=== PATIENT | male | born 1935 | race Caucasian/White ===

== ENCOUNTER 2019-12-07 12:51 | Inpatient (IN) | payer MEDICARE, MEDICAID ==
[2019-12-07] MEDS ORDERED: Acetaminophen 325 MG TAB PO PRN (13:59)
[2019-12-07] MEDS ORDERED: Ondansetron ODT 4 MG TAB PO PRN (13:59)
[2019-12-07] MEDS ORDERED: Ondansetron PF 4 MG/2 ML Vial IVP PRN (13:59)
[2019-12-07] MEDS ORDERED: Calcium Carbonate 500 MG ChewTAB PO PRN (13:59)
[2019-12-07] MEDS ORDERED: Nitroglycerin 0.4 MG TAB (25 Tab Bottle) PO PRN (14:06)
[2019-12-07] MEDS ORDERED: Sodium Bicarbonate 150 MEQ in Dextrose 5% in Water 1,000 ML IV SCH (14:15)
[2019-12-07] MEDS ORDERED: Nitroglycerin 2% Ointment 1 INCH/1 GM Packet TOP SCH ×2 (14:15→22:00)
[2019-12-07] MEDS ORDERED: Hydrocortisone Sod Succ/PF 100 mg/2 ml Vial ONE (14:24)
[2019-12-07 14:39] LABS: CKMB 59.4 ng/mL (0-6.6)
[2019-12-07 15:01] LABS: Lactic Acid 2.5 mmol/L (0.5-2.2)
--- NOTE | 2019-12-07 15:12 | PDOC.HHP ---
Hospitalist HPI - History of Present Illness AMS History of Present Illness: 84 yom [place] resident with dementia and multiple comorbidities was brought in by EMS for change mental status with hypoxia. Mentation declined earlier this morning. He was noted to have increased work of breathing. He was then found unresponsive with a an oxygen saturation of 66%. Per EMS notes, his oxygen saturations were in the 80s on arrival and the patient was hypotensive. Patient was placed on a nonrebreather and oxygen saturations improved to 90. History is limited due to current mentation. History obtained from [place] records. Hospitalist ROS - Review of Systems ROS unobtainable: due to mental status Hospitalist History - Past Medical History Other Medical History: Medical History: Hypertension, Hyperlipidemia, Coronary atherosclerosis of unspecified type of vessel, [place] or graft, Abnormal gait and Mobility; due to BKA, Paroxysmal atrial fib, Depression/anxiety., Nonhealing wound ulcer requiring left AKA, Arthritis, [place] osteoporosis, Coronary atherosclerosis of unspecified type of vessel, [place] or graft, Chronic Depression, Insomnia , Paroxysmal atrial fibrilation, Physical deconditioning, BPH (benign prostatic hyperplasia), Benign essential HTN, Unspecified mood [affective] disorder, Depression with anxiety, Dyslipidemia, AF (paroxysmal atrial fibrillation), BPH (benign prostatic hyperplasia), Chronic kidney disease, stage 2 (mild), Lower limb amputation, above knee, Abnormality of gait due to impairment of balance. 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 Family History: Cannot obtain due to current mentation. Social History: Non-Smoker. No Alcohol. DNR. DPOA son John Leal Medications: No list in chart. Will obtain from [place]. Allergies: N.K.D.A. - Exam General Appearance: ill appearing General - other findings: on Non-rebreather Eye: PERRL, anicteric sclera Neck: supple, no carotid bruit, JVD Heart: RRR (tachycardic), no gallops, no rubs, diminshed peripheral pulses Respiratory: rales (rt base), rhonchi, tachypneic, wheezes Gastrointestinal: soft, non-tender, no guarding, no rigidity Extremities: no cyanosis, no clubbing Extremities - other findings: Left BKA Psychiatric: lethargic Psychiatric - other findings: Neuro/Psych - cannot assess due to current mentation Hospitalist Results - Labs Lab results: Lactic Acid 2.5 mmol/L (0.5-2.2) H 12/07/19 14:31 CK-MB (CK-2) 59.4 ng/mL (0-6.6) H* 12/07/19 13:37 Troponin I 18.449 ng/mL (< 0.028) H* 12/07/19 13:37 Laboratory Tests 12/07/19 12/07/19 12/07/19 08:57 08:57 08:57 BUN 43 H Creatinine 1.39 H Lactic Acid AST 129 H ALT 58 H CK-MB (CK-2) 74.0 H* Troponin I 29.381 H* B-Natriuretic Peptide 715.9 H 12/07/19 12/07/19 08:57 14:31 BUN Creatinine Lactic Acid 3.3 H 2.5 H AST ALT CK-MB (CK-2) Troponin I B-Natriuretic Peptide Laboratory Tests 12/07/19 08:57 WBC 16.0 H Hgb 15.0 Plt Count 327 - EKG Interpretation EKG: Sinus tachy with NSST change (reviewed by me) - Radiology Interpretation Chest x-ray Status: image reviewed by me Additional Comment: PORTABLE CHEST 1 VIEW: Date: 12/07/2019 Time: 0852 hours HISTORY: Altered mental status. COMPARISON: 11/28/2011. FINDINGS/IMPRESSION: The heart size is borderline. No focal areas of consolidation, pneumothoraces, or pleural effusions a re seen. There is mild prominence of the interstitial markings predominantly in the right lung. CT scan - head Status: image reviewed by me Additional Comment: CT BRAIN WITHOUT CONTRAST: Date: 12/07/2019 HISTORY: Altered mental status. FINDINGS: Comparison made with exam of 08/01/2011. Changes of cortical atrophy are again seen. Old infarction in the right occipital lobe is again noted . The ventricular size is stable and the basilar cisterns are patent. There is a new acute 14.0 mm focus of acute hemorrhage in the right posterior temporal lobe with surr ounding vasogenic edema. The bony calvarium is intact. The visualized paranasal sinuses and mastoid a ir cells are well aerated. IMPRESSION: Acute 14.0 mm focus of right hemispheric hemorrhage. Hospitalist H&P A/P - Plan Plan: Toxic Metabolic Encephalopathy - multifactorial Acute hypoxic resp failure due to Aspiration Pneumonia NSTEMI Hypotension Acute 14.0 mm focus of right hemispheric hemorrhage RENEE on CKD 2/Lactic acidosis h/o of Hypertension Hyperlipidemia CAD h/o Left BKA Anxiety Dementia BPH Par Afib - not anticoag candidate due to ICH Physical deconditioing PLAN: Stroke unit monitoring NSG recommended conservative measures Neurochecks COVID pending IV Meropenem IVF with bicarb Stress dose steroids due to hypotension No antiplatelet/anticoag due to ICH No BB/ACEI/ARB due to hypotension Verify NH meds Will consult CM for hospice eval Plan d/w son GARFIELD in detail - He agrees with comfort measures
[2019-12-07] MEDS: MEROPENEM 1 GM/50 ML 1 GM in Premix Bag 1 BAG IVPB SCH ×2 (18:57→22:00)
[2019-12-07] MEDS: Sodium Bicarbonate 150 MEQ in Dextrose 5% in Water 1,000 ML IV SCH (19:04)
[2019-12-07] MEDS ORDERED: Hydrocortisone Sod Succ/PF 100 mg/2 ml Vial IVP SCH (22:00)
[2019-12-07] MEDS: Hydrocortisone Sod Succ/PF 100 mg/2 ml Vial IVP SCH (22:00)
[2019-12-07] MEDS: Famotidine/PF 20 mg/2ml Vial SLOW IVP SCH (22:00)
[2019-12-08 05:16] LABS: #Lymphocytes 0.7 thou/uL (1.20-3.40); #Monocytes 0.6 thou/uL (0.11-0.59); #Neutrophils 6.3 thou/uL (1.40-6.50); %Eosinophils 0.1 % (0.0-10.0); %Lymphocytes 9.6 % (21.0-51.0); %Monocytes 7.6 % (0.0-10.0); %Neutrophils 82.8 % (42.0-75.0); Hemoglobin 12.7 g/dL (14.0-18.0); Mean Corpuscular HGB CONC 31.1 g/dL (32.0-36.0); Mean Corpuscular Hemoglobin 31.5 pg (27.0-31.0); Mean Platelet Volume 7.7 fL (7.4-10.4); Platelet Count 138 thou/uL (130-400); RBC Distribution Width 12.4 % (11.5-14.5); Red Blood Cell (RBC) Count 4.02 mill/uL (4.70-6.10); White Blood Cell (WBC) Count 7.6 thou/uL (4.8-10.8)
[2019-12-08 05:33] LABS: Lactic Acid 3.7 mmol/L (0.5-2.2)
[2019-12-08 05:38] LABS: Phosphorus 3.1 mg/dL (2.3-4.7)
[2019-12-08 05:40] LABS: ALT (SGPT) 53 U/L (8-55); AST (SGOT) 78 U/L (5-34); Albumin 3.2 g/dL (3.4-4.8); Alkaline Phosphatase 71 U/L (40-110); Anion Gap 13 mmol/L (10-20); BUN (Urea Nitrogen) 31 mg/dL (8.4-25.7); Bilirubin, Total 0.3 mg/dL (0.2-1.2); Calc. Creatinine Clearance 62 mL/min (70-130); Calcium 7.4 mg/dL (7.8-10.44); Carbon Dioxide 24 mmol/L (23-31); Chloride 112 mmol/L (98-107); Estimated GFR-MDRD 81; Globulin 2.7 g/dL (2.4-3.5); Glucose 148 mg/dL (83-110); Potassium 3.9 mmol/L (3.5-5.1); Protein, Total 5.9 g/dL (5.8-8.1); Sodium 145 mmol/L (136-145)
[2019-12-08 05:45] LABS: Troponin I 6.607 ng/mL (< 0.028)
[2019-12-08] MEDS: Hydrocortisone Sod Succ/PF 100 mg/2 ml Vial IVP SCH ×3 (06:19→22:39)
[2019-12-08] MEDS: MEROPENEM 1 GM/50 ML 1 GM in Premix Bag 1 BAG IVPB SCH ×3 (06:19→22:39)
--- NOTE | 2019-12-08 08:06 | PDOC.HOSPP ---
- Subjective Encounter Date: 12/08/19 Encounter Time: 08:00 Subjective: Patient seen and examined for NSTEMI/ICH. Lethargic. Overnight events noted. - Objective Vital Signs & Weight: Vital Signs (12 hours) Temp Pulse Resp BP Pulse Ox 12/08/19 07:40 98.6 F 89 22 H 140/64 97 12/08/19 03:26 97.4 F L 84 20 140/63 97 12/07/19 23:26 97.1 F L 81 20 98 Weight Weight 160 lb 14.999 oz I&O: 12/07/19 12/08/19 12/09/19 06:59 06:59 06:59 Output Total 800 Balance -800 Result Diagrams: 12/08/19 04:55 12/08/19 04:55 Additional Labs: Laboratory Tests 12/08/19 12/08/19 04:55 04:55 Lactic Acid 3.7 H Troponin I 6.607 H* Laboratory Tests 12/07/19 15:50 SARS-CoV-2 Rap RNA(RT-PCR) Not Detected Radiology Reviewed by me: Yes (CXR - Pneumonia) EKG Reviewed by me: Yes (Tele SR) Hospitalist ROS - Review of Systems ROS unobtainable: due to mental status - Medication Medications: Active Medications Generic Name Dose Route Start Last Admin Trade Name Freq PRN Reason Stop Dose Admin Famotidine 20 mg 12/07/19 21:00 12/07/19 22:00 Pepcid SLOW IVP 20 mg Q12HR EMILEE Administration Hydrocortisone Sodium Succinate 100 mg 12/07/19 22:00 12/08/19 06:19 Solu-Cortef IVP 100 mg Q8HR EMILEE Administration Meropenem 1 gm/ Device 50 mls @ 200 mls/hr 12/07/19 14:00 12/08/19 06:19 IVPB 50 mls Q8HR EMILEE Administration Levetiracetam 500 mg/ Device 100 mls @ 200 mls/hr 12/08/19 02:00 12/08/19 03: 00 IVPB 100 mls 0200,1400 EMILEE Administration Sodium Chloride 10 ml 12/07/19 13:59 12/07/19 22:02 Flush - Normal Saline IVF 10 ml PRN PRN Administration Saline Flush - Exam General Appearance: ill appearing Neck: supple, no JVD Heart: RRR, no gallops, no rubs, normal peripheral pulses Respiratory: no wheezes, rales, rhonchi, tachypneic Gastrointestinal: soft, no palpable masses, no guarding, no rigidity Extremities: no cyanosis, no clubbing Neurological - other findings: Cannot assess due to current mentation Psychiatric: lethargic Hosp A/P - Plan DVT proph w/SCDs Toxic Metabolic Encephalopathy - multifactorial Acute hypoxic resp failure due to Aspiration Pneumonia -on Meropenem NSTEMI -Troponins improving -no antiplatelet/anticoag due to ICH Hypotension -improving Relative adrenal insuff Acute 14.0 mm focus of right hemispheric hemorrhage -no surgical intervention per NSG RENEE on CKD 2/Lactic acidosis h/o of Hypertension Hyperlipidemia CAD h/o Left BKA Anxiety Dementia BPH Par Afib - not anticoag candidate due to ICH Physical deconditioing PLAN: Cont tele monitoring Cont Neurochecks COVID negative Cont IV Meropenem Cont IVF with bicarb - reduce rate to 50 Cont Keppra Cont stress dose steroids No BB/ACEI/ARB due to hypotension Await hospice eval
[2019-12-08] MEDS: Sodium Bicarbonate 150 MEQ in Dextrose 5% in Water 1,000 ML IV SCH ×2 (08:56→09:45)
[2019-12-08] MEDS: Famotidine/PF 20 mg/2ml Vial SLOW IVP SCH ×2 (08:57→22:39)
[2019-12-09] MEDS: Morphine 2 MG/ML VIAL SLOW IVP PRN (01:18)
[2019-12-09] MEDS ORDERED: hydrALAZINE 20 MG/ML VIAL SLOW IVP SCH (02:00)
[2019-12-09] MEDS ORDERED: Morphine 2 MG/ML VIAL SLOW IVP PRN (03:35)
[2019-12-09] MEDS: MEROPENEM 1 GM/50 ML 1 GM in Premix Bag 1 BAG IVPB SCH ×3 (06:38→20:52)
[2019-12-09] MEDS: Hydrocortisone Sod Succ/PF 100 mg/2 ml Vial IVP SCH ×2 (06:38→15:47)
[2019-12-09] MEDS: Sodium Bicarbonate 150 MEQ in Dextrose 5% in Water 1,000 ML IV SCH (06:52)
[2019-12-09] MEDS: Famotidine/PF 20 mg/2ml Vial SLOW IVP SCH ×2 (09:37→20:48)
--- NOTE | 2019-12-09 10:04 | PDOC.HOSPP ---
- Subjective Encounter Date: 12/09/19 Encounter Time: 11:30 Subjective: Patient seen and examined for NSTEMI/ICH with Pneumonia. No overnight events - Objective Vital Signs & Weight: Vital Signs (12 hours) Temp Pulse Resp BP BP Pulse Ox 12/09/19 07:41 99.6 F 84 16 144/93 H 93 L 12/09/19 04:39 98.2 F 83 18 154/72 H 93 L 12/09/19 02:31 163/71 H 12/09/19 02:17 82 170/73 H 12/09/19 01:12 98.2 F 85 17 172/74 H 94 L Weight Weight 153 lb 3.54 oz I&O: 12/08/19 12/09/19 12/10/19 06:59 06:59 06:59 Intake Total 1567.12 Output Total 800 1150 Balance -800 417.12 Result Diagrams: 12/08/19 04:55 12/08/19 04:55 EKG Reviewed by me: Yes (Tele SR) Hospitalist ROS - Review of Systems ROS unobtainable: due to mental status - Medication Medications: Active Medications Generic Name Dose Route Start Last Admin Trade Name Freq PRN Reason Stop Dose Admin Famotidine 20 mg 12/07/19 21:00 12/09/19 09:37 Pepcid SLOW IVP 20 mg Q12HR EMILEE Administration Hydrocortisone Sodium Succinate 100 mg 12/07/19 22:00 12/09/19 06:38 Solu-Cortef IVP 100 mg Q8HR EMILEE Administration Meropenem 1 gm/ Device 50 mls @ 200 mls/hr 12/07/19 14:00 12/09/19 06:38 IVPB 50 mls Q8HR EMILEE Administration Levetiracetam 500 mg/ Device 100 mls @ 200 mls/hr 12/08/19 02:00 12/09/19 01: 19 IVPB 100 mls 0200,1400 EMILEE Administration Sodium Bicarbonate 150 meq/ 1,150 mls @ 50 mls/hr 12/08/19 08:00 12/09/19 06: 52 Dextrose/Water IV 1,150 mls .Q23H EMILEE Administration Morphine Sulfate 2 mg 12/08/19 03:33 12/09/19 01:18 Morphine SLOW IVP 2 mg Q4H PRN Administration Moderate to Severe Pain (4-10) Morphine Sulfate 2 mg 12/09/19 03:35 12/09/19 03:58 Morphine SLOW IVP 12/10/19 03:36 2 mg ONE PRN Administration Breakthrough Pain Sodium Chloride 10 ml 12/07/19 13:59 12/07/19 22:02 Flush - Normal Saline IVF 10 ml PRN PRN Administration Saline Flush - Exam General Appearance: ill appearing Heart: RRR, no gallops Respiratory: rales, rhonchi Gastrointestinal: soft, no guarding, no rigidity Extremities: no cyanosis, no clubbing Psychiatric: lethargic Hosp A/P - Plan DVT proph w/SCDs Toxic Metabolic Encephalopathy - multifactorial Acute hypoxic resp failure due to Aspiration Pneumonia -on Meropenem NSTEMI -Troponins improving -no antiplatelet/anticoag due to ICH Hypotension -improving Relative adrenal insuff Acute 14.0 mm focus of right hemispheric hemorrhage -no surgical intervention per NSG RENEE on CKD 2/Lactic acidosis h/o of Hypertension Hyperlipidemia CAD h/o Left BKA Anxiety Dementia BPH Par Afib - not anticoag candidate due to ICH Physical deconditioing PLAN: Cont supportive care Cont IV Meropenem Cont gentle IV hydration Cont Neurochecks Cont Keppra for seizure prophylaxis Cont stress dose steroids No BB/ACEI/ARB due to hypotension Await hospice eval
[2019-12-09] MEDS ORDERED: D5W-AA 4.25% with LYTES 1,000 ML BAG IV SCH (17:00)
--- NOTE | 2019-12-09 17:04 | PDOC.EVN ---
Event Note - Event Note Event Note: Case d/w son Bravo. He requested to wait for 2-3 days regarding decision on hospice. Also requested IV nutrition and f/u on NSTEMI and ICH. Will add Echo and CT brain. Start PPN. DC IVF.
--- NOTE | 2019-12-09 20:58 | CT ---
CT HEAD WITHOUT IV CONTRAST COMPARISON: 12/07/2019 HISTORY: Follow-up intracranial hemorrhage TECHNIQUE: Axial CT imaging at 5 mm intervals from vertex through skull base without contrast FINDINGS: Previously described hemorrhage in the right temporal occipital region is again seen which measures 1 .7 cm on the current study with previous measurement of 1.4 cm. Adjacent vasogenic edema is again present. No new areas of intraparenchymal or extra-axial hemorrhage are identified. Stable areas evidence encephalomalacia in each occipital lobe are again seen related to prior insult. Stable remote lacunar infarction in the body of the right caudate is present. No acute cortical infarction or midline shift is present. Cerebral volume loss is again present. The ventricular system is dilated and out of proportion to the degree of sulcal atrophy. However, this finding was also seen on a prior CT head in 2011. Tiny mucus retention cyst left maxillary antrum is present with mild mucosal thickening in the right frontal sinus and anterior right ethmoidal air cells. Mastoid air cells are clear. Osseous structures appear intact. No other interval change IMPRESSION: Previously described intraparenchymal hemorrhage with associated vasogenic edema in the right tempora l occipital region is again seen. Measurements of the hemorrhage on the current study suggests slight interval enlargement from the prior exam. No new intraparenchymal or extra-axial hemorrhage is seen.
[2019-12-09] MEDS ORDERED: Hydrocortisone Sod Succ/PF 100 mg/2 ml Vial IVP SCH (22:00)
[2019-12-10] MEDS: Dexamethasone 4 mg/ml Vial SLOW IVP SCH ×3 (01:07→21:52)
[2019-12-10 05:20] LABS: #Monocytes 0.5 thou/uL (0.11-0.59); #Neutrophils 6.8 thou/uL (1.40-6.50); %Eosinophils 0.1 % (0.0-10.0); %Lymphocytes 11.5 % (21.0-51.0); %Monocytes 6.2 % (0.0-10.0); %Neutrophils 82.2 % (42.0-75.0); Hemoglobin 12.4 g/dL (14.0-18.0); Mean Corpuscular HGB CONC 33.4 g/dL (32.0-36.0); Mean Corpuscular Hemoglobin 32.8 pg (27.0-31.0); Mean Corpuscular Volume 98.2 fL (78.0-98.0); Mean Platelet Volume 7.6 fL (7.4-10.4); Platelet Count 171 thou/uL (130-400); RBC Distribution Width 12.1 % (11.5-14.5); Red Blood Cell (RBC) Count 3.79 mill/uL (4.70-6.10); White Blood Cell (WBC) Count 8.3 thou/uL (4.8-10.8)
[2019-12-10 05:36] LABS: Lactic Acid 1.1 mmol/L (0.5-2.2)
[2019-12-10 05:44] LABS: ALT (SGPT) 29 U/L (8-55); AST (SGOT) 27 U/L (5-34); Albumin 3.1 g/dL (3.4-4.8); Alkaline Phosphatase 71 U/L (40-110); Anion Gap 13 mmol/L (10-20); BUN (Urea Nitrogen) 16 mg/dL (8.4-25.7); Bilirubin, Total 0.7 mg/dL (0.2-1.2); Calc. Creatinine Clearance 78 mL/min (70-130); Carbon Dioxide 27 mmol/L (23-31); Chloride 108 mmol/L (98-107); Estimated GFR-MDRD Greater than 90; Globulin 3.2 g/dL (2.4-3.5); Glucose 128 mg/dL (83-110); Magnesium 2.1 mg/dL (1.6-2.6); Protein, Total 6.3 g/dL (5.8-8.1); Sodium 145 mmol/L (136-145)
[2019-12-10 05:56] LABS: Potassium 2.8 mmol/L (3.5-5.1)
[2019-12-10] MEDS ORDERED: Potassium Chloride 30 MEQ in Sodium Chloride 0.9% 250 ML 250 ML IVPB SCH (06:30)
[2019-12-10] MEDS: MEROPENEM 1 GM/50 ML 1 GM in Premix Bag 1 BAG IVPB SCH ×3 (06:32→21:52)
--- NOTE | 2019-12-10 08:40 | PDOC.HOSPP ---
- Subjective Encounter Date: 12/10/19 Encounter Time: 14:00 Subjective: Patient is an 84-year-old male examined for NSTEMI, ICH, and pneumonia. Reviewed chest x ray - left lower lobe pneumonia still present. Reviewed CT brain - right temporal-occipital hemorrhage still present. Spoke to family, who requested patient be given 2-3 more days in hospital care before deciding on hospice. - Objective Vital Signs & Weight: Vital Signs (12 hours) Temp Pulse Resp BP Pulse Ox 12/10/19 07:42 98.1 F 83 20 151/70 H 94 L 12/10/19 03:12 98.7 F 87 20 159/67 H 94 L 12/09/19 23:16 98.3 F 86 20 165/74 H 93 L Weight Admit Weight 160 lb 14.992 oz Weight 160 lb 14.992 oz I&O: 12/09/19 12/10/19 12/11/19 06:59 06:59 06:59 Intake Total 1567.12 974 Output Total 1150 1575 Balance 417.12 -601 Result Diagrams: 12/11/19 04:43 12/11/19 04:43 Additional Labs: Accuchecks 12/09/19 12/09/19 12/09/19 10:41 05:31 01:10 POC Glucose 133 H 136 H 153 H 12/08/19 12/08/19 12/08/19 18:42 14:48 05:23 POC Glucose 146 H 128 H 168 H 12/07/19 20:45 POC Glucose 154 H Radiology Reviewed by me: Yes (CXR - Pneumonia) EKG Reviewed by me: Yes (Tele SR) Hospitalist ROS - Review of Systems ROS unobtainable: due to mental status - Medication Medications: Active Medications Generic Name Dose Route Start Last Admin Trade Name Freq PRN Reason Stop Dose Admin Dexamethasone 4 mg 12/09/19 23:59 12/10/19 06:32 Decadron SLOW IVP 4 mg Q6HR EMILEE Administration Famotidine 20 mg 12/07/19 21:00 12/09/19 20:48 Pepcid SLOW IVP 20 mg Q12HR EMILEE Administration Meropenem 1 gm/ Device 50 mls @ 200 mls/hr 12/07/19 14:00 12/10/19 06:32 IVPB 50 mls Q8HR EMILEE Administration Levetiracetam 500 mg/ Device 100 mls @ 200 mls/hr 12/08/19 02:00 12/10/19 01: 07 IVPB 100 mls 0200,1400 EMILEE Administration Potassium Chloride 30 meq/ 265 mls @ 88.333 mls/hr 12/10/19 06:30 12/10/19 07 :24 Sodium Chloride IVPB 12/10/19 09:29 265 mls NOW EMILEE Administration Morphine Sulfate 2 mg 12/08/19 03:33 12/09/19 01:18 Morphine SLOW IVP 2 mg Q4H PRN Administration Moderate to Severe Pain (4-10) Sodium Chloride 10 ml 12/07/19 13:59 12/07/19 22:02 Flush - Normal Saline IVF 10 ml PRN PRN Administration Saline Flush - Exam General Appearance: negative: awake alert ENT: dry oral mucosa Neck: symmetric, no JVD, no carotid bruit Heart: RRR, no gallops, no rubs, normal peripheral pulses, murmur present Respiratory: CTAB, no wheezes, no rales, no ronchi, no tachypnea Gastrointestinal: soft, non-distended, normal bowel sounds, no palpable masses, no hepatomegaly, no splenomegaly Extremities: no cyanosis, no clubbing, no edema Skin: normal turgor, no lesions Neurological: no new deficit Psychiatric: not oriented, lethargic Hosp A/P - Plan plan discussed w/ family, DVT proph w/SCDs Toxic Metabolic Encephalopathy - multifactorial Acute hypoxic resp failure due to Aspiration Pneumonia -on Meropenem Hypokalemia NSTEMI -Troponins improving -no antiplatelet/anticoag due to ICH Hypotension -improving Relative adrenal insuff Acute 14.0 mm focus of right hemispheric hemorrhage with vasogenic edema -no surgical intervention per NSG RENEE on CKD 2/Lactic acidosis/Hypokalemia h/o of Hypertension Hyperlipidemia CAD h/o Left BKA Anxiety Dementia BPH Par Afib - not anticoag candidate due to ICH Physical deconditioing PLAN: Replace Potassium Cont IV Meropenem Cont PPN Cont Neurochecks with Keppra for seizure prophylaxis Cont Dexamethasone for vasogenic edema No BB/ACEI/ARB due to hypotension Cont supportive care Recheck Potassium later today AM labs
[2019-12-10] MEDS: Famotidine/PF 20 mg/2ml Vial SLOW IVP SCH ×2 (10:02→21:52)
[2019-12-10] MEDS: Morphine 2 MG/ML VIAL SLOW IVP PRN (10:15)
--- NOTE | 2019-12-10 11:50 | RAD ---
EXAM: Single view of the chest HISTORY: Shortness of breath and pneumonia COMPARISON: 12/07/2019 FINDINGS: Single view of the chest shows an enlarged but stable cardiomediastinal silhouette. Athero sclerotic calcifications are seen in the aorta. There may be a subtle infiltrate in the left lung base. The bones are unremarkable IMPRESSION: Left lower lobe infiltrate
[2019-12-10 14:14] LABS: Potassium 3.4 mmol/L (3.5-5.1)
[2019-12-10 14:31] VITALS: BMI 21.9
[2019-12-11] MEDS: Morphine 2 MG/ML VIAL SLOW IVP PRN ×3 (01:11→17:07)
[2019-12-11 04:55] LABS: #Monocytes 0.6 thou/uL (0.11-0.59); #Neutrophils 6.7 thou/uL (1.40-6.50); %Basophils 0.1 % (0.0-1.0); %Eosinophils 0.1 % (0.0-10.0); %Lymphocytes 11.7 % (21.0-51.0); %Monocytes 7.5 % (0.0-10.0); %Neutrophils 80.6 % (42.0-75.0); Hemoglobin 12.1 g/dL (14.0-18.0); Mean Corpuscular HGB CONC 31.8 g/dL (32.0-36.0); Mean Corpuscular Hemoglobin 31.5 pg (27.0-31.0); Mean Corpuscular Volume 99.2 fL (78.0-98.0); Mean Platelet Volume 7.8 fL (7.4-10.4); Platelet Count 171 thou/uL (130-400); Red Blood Cell (RBC) Count 3.83 mill/uL (4.70-6.10); White Blood Cell (WBC) Count 8.4 thou/uL (4.8-10.8)
[2019-12-11 05:15] LABS: Anion Gap 13 mmol/L (10-20); BUN (Urea Nitrogen) 29 mg/dL (8.4-25.7); Calc. Creatinine Clearance 81 mL/min (70-130); Calcium 8.2 mg/dL (7.8-10.44); Carbon Dioxide 23 mmol/L (23-31); Chloride 113 mmol/L (98-107); Estimated GFR-MDRD Greater than 90; Glucose 121 mg/dL (83-110); Potassium 3.7 mmol/L (3.5-5.1); Sodium 145 mmol/L (136-145)
[2019-12-11] MEDS: MEROPENEM 1 GM/50 ML 1 GM in Premix Bag 1 BAG IVPB SCH ×3 (05:57→22:24)
--- NOTE | 2019-12-11 08:17 | PDOC.HOSPP ---
- Subjective Encounter Date: 12/11/19 Encounter Time: 09:55 Subjective: Patient has been seen and examined for NSTEMI, intracranial hemorrhage, and aspiration pneumonia. Patient continues to remain unresponsive to external stimuli. No new events overnight. - Objective Vital Signs & Weight: Vital Signs (12 hours) Temp Pulse Resp BP Pulse Ox 12/11/19 07:37 97.9 F 63 19 148/70 H 96 12/11/19 04:02 98.4 F 63 18 111/56 L 94 L 12/11/19 00:30 97.6 F 70 18 128/61 95 12/10/19 21:52 97 Weight Admit Weight 160 lb 14.992 oz Weight 160 lb 11.2 oz I&O: 12/10/19 12/11/19 12/12/19 06:59 06:59 06:59 Intake Total 974 1851 Output Total 1575 1300 Balance -601 551 Result Diagrams: 12/11/19 04:43 12/11/19 04:43 Additional Labs: Accuchecks 12/10/19 12/10/19 12/09/19 12:41 00:40 16:41 POC Glucose 145 H 140 H 127 H Radiology Reviewed by me: Yes (CXR - lower left lung infiltrate; echocardiogram) EKG Reviewed by me: Yes (Tele SR) Hospitalist ROS - Review of Systems ROS unobtainable: due to mental status - Medication Medications: Active Medications Generic Name Dose Route Start Last Admin Trade Name Freq PRN Reason Stop Dose Admin Dexamethasone 4 mg 12/10/19 21:00 12/10/19 21:52 Decadron SLOW IVP 4 mg BID EMILEE Administration Famotidine 20 mg 12/07/19 21:00 12/10/19 21:52 Pepcid SLOW IVP 20 mg Q12HR EMILEE Administration Meropenem 1 gm/ Device 50 mls @ 200 mls/hr 12/07/19 14:00 12/11/19 05:57 IVPB 50 mls Q8HR EMILEE Administration Levetiracetam 500 mg/ Device 100 mls @ 200 mls/hr 12/08/19 02:00 12/11/19 01: 03 IVPB 100 mls 0200,1400 EMILEE Administration Morphine Sulfate 2 mg 12/08/19 03:33 12/11/19 05:58 Morphine SLOW IVP 2 mg Q4H PRN Administration Moderate to Severe Pain (4-10) Sodium Chloride 10 ml 12/07/19 13:59 12/11/19 05:59 Flush - Normal Saline IVF 10 ml PRN PRN Administration Saline Flush - Exam General Appearance: ill appearing Neck: supple, symmetric, no JVD Heart: RRR, no gallops, no rubs, normal peripheral pulses, murmur present Respiratory: no rales, no ronchi, wheezes Extremities: no cyanosis, no clubbing, no edema Hosp A/P - Plan DVT proph w/SCDs Toxic Metabolic Encephalopathy - multifactorial Acute hypoxic resp failure due to Aspiration Pneumonia -on Meropenem Hypokalemia -replaced NSTEMI -Troponins improving -no antiplatelet/anticoag due to ICH Hypotension -improving Relative adrenal insuff Acute 14.0 mm focus of right hemispheric hemorrhage with vasogenic edema -no surgical intervention per NSG RENEE on CKD 2/Lactic acidosis/Hypokalemia h/o of Hypertension Hyperlipidemia CAD h/o Left BKA Anxiety Dementia BPH Par Afib - not anticoag candidate due to ICH Physical deconditioing PLAN: Cont IV Meropenem Cont PPN Cont Neurochecks Cont Keppra for seizure prophylaxis Cont Dexamethasone No BB/ACEI/ARB due to relative hypotension on admission Cont supportive care AM labs DC to NH with hospice in AM if family agreeable
[2019-12-11] MEDS: Famotidine/PF 20 mg/2ml Vial SLOW IVP SCH ×2 (09:21→22:24)
[2019-12-11] MEDS: D5W-AA 4.25% with LYTES 1,000 ML BAG IV SCH (09:21)
[2019-12-11] MEDS: Dexamethasone 4 mg/ml Vial SLOW IVP SCH ×2 (09:21→22:24)
[2019-12-12] MEDS: MEROPENEM 1 GM/50 ML 1 GM in Premix Bag 1 BAG IVPB SCH (06:21)
[2019-12-12] MEDS: D5W-AA 4.25% with LYTES 1,000 ML BAG IV SCH (08:15)
[2019-12-12] MEDS: Dexamethasone 4 mg/ml Vial SLOW IVP SCH (08:21)
[2019-12-12] MEDS: Famotidine/PF 20 mg/2ml Vial SLOW IVP SCH (08:21)
--- NOTE | 2019-12-12 11:01 | DIS ---
DATE OF ADMISSION: 12/07/2019 DATE OF DISCHARGE: 12/12/2019 DISCHARGE DISPOSITION: Hospice at [facility]. The patient was seen and examined on the day of discharge. DISCHARGE MEDICATIONS: 1. Augmentin 400 mg twice daily for 1 week. 2. Dexamethasone taper. 3. Keppra 500 mg b.i.d. for seizure prophylaxis. 4. Aspirin was discontinued. All other home medications were left unchanged. BRIEF HOSPITAL COURSE: The patient is an 84-year-old male with hypertension, hyperlipidemia, and paroxysmal atrial fibrillation, was brought into the emergency room on 07 December 2019 with altered mentation. Please refer to the history and physical dated December 07, 2019 for further details. The patient was admitted to the hospital with a diagnosis of toxic metabolic encephalopathy. He was diagnosed with aspiration pneumonia causing hypoxic respiratory failure along with intracranial bleed. His troponin's were elevated at 29.3. He was managed conservatively per family's recommendation. Anticoagulation and antiplatelets were not started due to intracranial bleed. He was also started on stress dose steroid due to relative adrenal insufficiency. Since yesterday, his mentation is gradually improving. He was placed on PPN during this hospital stay. He also had multiple electrolyte abnormalities, which has been replaced. COVID testing came back negative. His blood culture remained negative. He will be discharged to [facility] with hospice. DIAGNOSTIC TESTS: Echocardiogram showed ejection fraction 50% to 55% with diastolic dysfunction, mild aortic regurgitation, mild tricuspid regurgitation with moderate to severe aortic stenosis with valve area of 0.[address] scan of the brain on admission showed acute 14 mm focus of right hemispheric hemorrhage. Chest x-ray on admission showed left lower lobe infiltrate. FINAL DIAGNOSES: 1. Toxic metabolic encephalopathy, multifactorial. 2. Acute hypoxic respiratory failure secondary to aspiration pneumonia. 3. Non-ST elevation myocardial infarction. 4. Acute 14 mm focus of right hemispheric hemorrhage with vasogenic edema. 5. Hypotension due to relative adrenal insufficiency, improved. 6. Acute kidney injury on chronic kidney disease, stage 2. 7. Lactic acidosis. 8. Hypokalemia, replaced. 9. History of hypertension. 10. Hyperlipidemia. 11. Coronary artery disease. 12. History of left below-knee amputation. 13. Anxiety. 14. Dementia. 15. Benign prostatic hypertrophy. 16. Physical deconditioning. 17. Paroxysmal atrial fibrillation, not an anticoagulation candidate. 18. Moderate to severe aortic stenosis with valve area of 0.8 square cm. 19. Mild aortic regurgitation. 20. Mild tricuspid regurgitation. 21. Chronic diastolic heart failure. 22. Chronic kidney disease, stage 2. 23. Abnormal LFTs on admission, improving. Time coordinating the discharge of this patient was 36 minutes. Job ID: [id number]
[2019-12-12 11:36] VITALS: BP 130/60; TEMP 97.9
== END 2019-12-12 13:25 | disposition hospice, inpatient (51) | DRG 177 ==
LOC: ERS 12:51 → 2SE 14:03
PROVIDERS: ADMIT Internal Medicine; ATTEND Internal Medicine
DX: J69.0 Pneumonitis due to inhalation of food and vomit (principal); G92 Toxic encephalopathy; J96.01 Acute respiratory failure with hypoxia; I21.4 Non-ST elevation (NSTEMI) myocardial infarction; I61.2 Nontraumatic intracerebral hemorrhage in hemisphere, unspecified; G93.6 Cerebral edema; R40.2342 Coma scale, best motor response, flexion withdrawal, at arrival to emergency department; R40.2212 Coma scale, best verbal response, none, at arrival to emergency department; E27.40 Unspecified adrenocortical insufficiency; E87.2 Acidosis; I50.32 Chronic diastolic (congestive) heart failure; I13.0 Hypertensive heart and chronic kidney disease with heart failure and stage 1 through stage 4 chronic kidney disease, or unspecified chronic kidney disease; Z20.828 Contact with and (suspected) exposure to other viral communicable diseases; Z51.5 Encounter for palliative care; Z66 Do not resuscitate; I95.9 Hypotension, unspecified; N18.2 Chronic kidney disease, stage 2 (mild); E78.5 Hyperlipidemia, unspecified; I25.10 Atherosclerotic heart disease of native coronary artery without angina pectoris; F03.90 Unspecified dementia, unspecified severity, without behavioral disturbance, psychotic disturbance, mood disturbance, and anxiety; N40.0 Benign prostatic hyperplasia without lower urinary tract symptoms; I48.0 Paroxysmal atrial fibrillation; I08.2 Rheumatic disorders of both aortic and tricuspid valves; R94.5 Abnormal results of liver function studies; F41.8 Other specified anxiety disorders; M81.0 Age-related osteoporosis without current pathological fracture; Z89.612 Acquired absence of left leg above knee; Z79.899 Other long term (current) drug therapy; Z79.82 Long term (current) use of aspirin; R40.2142 Coma scale, eyes open, spontaneous, at arrival to emergency department
CPT/HCPCS: 36415; 36416; 51702; 70450; 71045; 80048; 80053; 82533; 82553; 83605; 83735; 84100; 84484; 85025; 93005; 93306; 94760; 96361; 96365; 96375; J0360; J1100; J1720; J1953; J2185; J2270; J3480; J7050; J7070; S0028; U0002